=== PATIENT | female | born 1990 ===

== ENCOUNTER 2019-02-28 11:30 | Inpatient (IN) | payer OTHER ==
[~2019-02-28] VITALS: Ht 160 cm; Wt 75.7 kg
[2019-03-05] MEDS ORDERED: PRENATAL TABLE1 EAC1 PO (07:35)
== END 2019-03-07 10:53 | disposition home or self-care (01) | DRG 807 ==
LOC: LDR 03-05 06:05 → EDBD 03-05 06:05 → OB/GYN 03-05 16:07
PROVIDERS: ADMIT Obstetrics & Gynecology
PROC: 10E0XZZ Delivery of Products of Conception, External Approach (ICD-10-PCS; principal; 2019-03-05)
PROC: 4A1HXCZ Monitoring of Products of Conception, Cardiac Rate, External Approach (ICD-10-PCS; 2019-03-05)
PROC: 0HQ9XZZ Repair Perineum Skin, External Approach (ICD-10-PCS; 2019-03-05)
DX: O70.0 First degree perineal laceration during delivery (principal); Z37.0 Single live birth; Z3A.39 39 weeks gestation of pregnancy

== ENCOUNTER 2020-06-10 13:00 | Inpatient (IN) | payer OTHER ==
[~2020-06-10] VITALS: Ht 160 cm; Wt 79.8 kg
[~2020-06-10 13:00] MED LIST: PRENATAL TABLE1 EAC1 PO
== END 2020-07-02 14:44 | DRG 798 ==
LOC: LDR 06-30 07:32 → OB/GYN 06-30 07:32 → LDR 06-30 09:21 → O/R 06-30 17:23 → OB/GYN 06-30 17:45
PROVIDERS: ADMIT Obstetrics & Gynecology; ATTEND Obstetrics & Gynecology
PROC: 0UB70ZZ Excision of Bilateral Fallopian Tubes, Open Approach (ICD-10-PCS; 2020-06-30)
PROC: 4A0HXFZ Measurement of Products of Conception, Cardiac Rhythm, External Approach (ICD-10-PCS; 2020-06-30)
PROC: 10E0XZZ Delivery of Products of Conception, External Approach (ICD-10-PCS; principal; 2020-06-30 15:30)
DX: O80 Encounter for full-term uncomplicated delivery (principal); Z37.0 Single live birth; Z3A.39 39 weeks gestation of pregnancy; Z30.2 Encounter for sterilization; Z20.828 Contact with and (suspected) exposure to other viral communicable diseases